=== PATIENT | female | born 1970 | race Caucasian/White ===

== ENCOUNTER 2018-08-18 19:11 | Emergency (ER) | payer MEDICAID ==
[2018-08-18 19:34] VITALS: BP 135/82; PULSE 85; RESP 18; TEMP 98.3
[2018-08-18] MEDS ORDERED: ACET/COD 300 MG/30 MG STARTER PACK 6 TAB BTL PO STA (20:28)
--- NOTE | 2018-08-18 20:29 | ED ---
Lower Extremity Injury HPI - General Chief Complaint: Extremity Injury, Lower Stated Complaint: L Calf Pain Source: patient, family Mode of arrival: wheelchair Limitations: no limitations - History of Present Illness Initial Comments: 48-year-old feel presenting today for chief complaint of left calf pain. Patient states that she was on her tiptoes reaching to open the blind when she felt a pop in her left calf as well as a sensation of being kicked. Patient denies any mass, patient states she is able to weight-bear. Patient states she is increased pain with plantar and dorsiflexion. Patient denies any numbness tingling or loss sensation pillar or coolness of the extremity. Patient denies any symptoms prior to the moment of reaching to open the blinds. Patient states she has not experienced this before. Patient presents for evaluation. Remaining review of systems negative, patient denies fall, head injury, fever, chills, shortness of breath, chest pain, back pain, abdominal pain, nausea or vomiting, numbness or tingling, dysuria or hematuria, constipation or diarrhea, headaches or visual changes, or any other complaints. - Related Data Allergies Allergy/AdvReac Type Severity Reaction Status Date / Time No Known Allergies Allergy Verified 08/18/18 19:34 Review of Systems ROS Statement: Those systems with pertinent positive or pertinent negative responses have been documented in the HPI. ROS Other: All systems not noted in ROS Statement are negative. Past Medical History Past Medical History: Hypertension History of Any Multi-Drug Resistant Organisms: None Reported Past Surgical History: Section, Orthopedic Surgery, Tubal Ligation Past Psychological History: No Psychological Hx Reported Smoking Status: Never smoker Past Alcohol Use History: Rare Past Drug Use History: None Reported General Exam - General Exam Comments Initial Comments: General: The patient is awake and alert, in no distress, and does not appear acutely ill. Eye: Pupils are equal, round and reactive to light, extra-ocular movements are intact. No nystagmus. There is normal conjunctiva bilaterally. No signs of icterus. Ears, nose, mouth and throat: There are moist mucous membranes and no oral lesions. Neck: The neck is supple, there is no tenderness or JVD. Cardiovascular: There is a regular rate and rhythm. No murmur, rub or gallop is appreciated. Respiratory: Lungs are clear to auscultation, respirations are non-labored, breath sounds are equal. No wheezes, stridor, rales, or rhonchi. Musculoskeletal: Normal inspection of the lower extremities equal and comparison bilaterally there is no lower extremity soft tissue swelling edema or masses. There is pain to palpation of the posterior left calf. No palpable warmth or muscle belly. Achilles tendon appears intact there is no bogginess. Goodman's intact. Patient has increased pain with plantar and dorsiflexion especially dorsiflexion. Normal ROM at the hips knees and ankles. Extensor mechanism intact. Strength 5/5. Sensation intact of the lower extremities equal comparison bilaterally including proximal distal to injury site. Compartments are soft and compressible. Dorsalis pedis Pulses equal bilaterally 2+. Capillary refill less than 2 seconds Neurological: A&O x 3. CN II-XII intact, There are no obvious motor or sensory deficits. Coordination appears grossly intact. Speech is normal. Skin: Skin is warm and dry and no rashes or lesions are noted. Psychiatric: Cooperative, appropriate mood & affect, normal judgment. Limitations: no limitations Course Vital Signs 08/18/18 19:29 Temperature 98.3 F Pulse Rate 85 Respiratory 18 Rate Blood Pressure 135/82 O2 Sat by Pulse 99 Oximetry Medical Decision Making - Medical Decision Making Physical examination findings concerning for possible partial or strained of a calf muscle. Achilles appears intact no evidence of deficit with Goodman test. no bogginess of achilles. extensor mechanism intact. no palpable muscle belly. Patient neurovascularly intact. Patient is ambulatory. Patient given prescription for crutches. Patient told to follow-up with orthopedic surgery in the next 1-2 days for further evaluation and treatment. Patient was given medication for pain management. I did discuss the case attending provider who is agreeable plan discharge, Dr. Mendez. Patient discharged appearing well, aware of all return parameters, denied questions. Disposition Clinical Impression: Pain of left calf, Strain of calf muscle Disposition: HOME SELF-CARE Condition: Good Instructions (If sedation given, give patient instructions): Muscle Strain (ED) , R.I.C.E. Treatment (ED) Additional Instructions: Please use medication as discussed. Please follow-up with orthopedic surgery in the next 2-3 days. Please return to emergency room if the symptoms increase or worsen or for any other concerns. Is patient prescribed a controlled substance at d/c from ED?: No Referrals: Kale Khoury MD [Primary Care Provider] - 1-2 days Mat Wall MD [Medical Doctor] - 1-2 days Time of Disposition: 20:29
== END 2018-08-18 20:46 | disposition home or self-care (01) ==
LOC: EC 19:11
DX: S86.812A Strain of other muscle(s) and tendon(s) at lower leg level, left leg, initial encounter (principal); X58.XXXA Exposure to other specified factors, initial encounter; Y92.009 Unspecified place in unspecified non-institutional (private) residence as the place of occurrence of the external cause
CPT/HCPCS: 99283